=== PATIENT | male | born 1955 | race Caucasian/White ===

== ENCOUNTER 2020-12-03 08:01 | Day surgery (SDC) | payer MEDICARE ==
[~2020-12-03 08:01] MED LIST: Dextrose 5%-Lactated Ringers 1,000 ML IV SCH
[2020-12-03] MEDS ORDERED: fentaNYL 100 MCG/2 ML SDV ONE (08:07)
[2020-12-03] MEDS ORDERED: Midazolam 1 MG/ML 2 ML SDV ONE (08:07)
[2020-12-03] MEDS ORDERED: Propofol 200 MG/20 ML SDV ONE (08:07)
--- NOTE | 2020-12-16 16:08 | OR ---
DATE OF PROCEDURE: 12/03/2020 SURGEON: Adelso Timmons MD PREOPERATIVE DIAGNOSIS: Family history of colon carcinoma. POSTOPERATIVE DIAGNOSES: 1. Family history of colon carcinoma. 2. Single small polyp in the distal sigmoid colon. OPERATIVE PROCEDURE: Flexible colonoscopy with polypectomy by snare technique. ANESTHESIA: IV sedation. INDICATION FOR PROCEDURE: This is a 65-year-old presenting for a screening colonoscopy. Does have a family history consistent of his father having colon carcinoma. Plan is to proceed with a colonoscopy with biopsies and/or polypectomy as indicated. Potential risks including bleeding and perforation were discussed, and the patient wishes to proceed. DETAILS OF PROCEDURE: The patient was taken to the operating room, placed in a left lateral decubitus position. IV sedation was administered. First, initial digital rectal exam was performed, it was unremarkable. Colonoscope was then passed into the rectum with retroflexion revealing uncomplicated hemorrhoidal columns. Scope was eventually passed to the level of the cecum. The prep was fairly good with only a small amount of liquid stool present. To that level, there were no diverticula or areas of colitis. There was a single roughly 2 mm polyp in the distal sigmoid colon. This was removed by means of cautery snare technique and sent for histologic evaluation and the procedure then concluded. There were no evident complications. Given the polyp being removed today, the next colonoscopy should be set up first in the range of 3 years. Adelso Timmons MD /[id number]
== END 2020-12-03 11:30 | disposition home or self-care (01) ==
LOC: JP.SDS 08:01
PROVIDERS: ATTEND Surgery
DX: Z12.11 Encounter for screening for malignant neoplasm of colon (principal); K63.5 Polyp of colon; Z80.0 Family history of malignant neoplasm of digestive organs
CPT/HCPCS: 45385; 88305; J2250; J2704; J3010; J7121